=== PATIENT | male | born 2000 | race Caucasian/White ===

== ENCOUNTER 2022-05-23 17:11 | Emergency (ER) | payer BC ==
[~2022-05-23] VITALS: Ht 172.7 cm; Wt 110.0 kg
[2022-05-23] MEDS ORDERED: ACETAMINOPHEN 325MG TABLET PO ONE (23:15)
[2022-05-23] MEDS ORDERED: LIDOCAINE 5% PATCH TOP SCH (23:15)
[2022-05-24] MEDS ORDERED: HYDROCODONE/ACETAMINOPHEN 5/325MG TABLET PO ONE (01:00)
[2022-05-24 01:12] VITALS: BP 114/52
== END 2022-05-24 01:21 | disposition home or self-care (01) ==
LOC: ER 17:34
DX: M25.512 Pain in left shoulder (principal); M79.602 Pain in left arm; M79.18 Myalgia, other site; W20.8XXA Other cause of strike by thrown, projected or falling object, initial encounter; Y93.11 Activity, swimming; Y92.832 Beach as the place of occurrence of the external cause
CPT/HCPCS: 73000; 73030; 99284